=== PATIENT | female | born 1975 | race Caucasian/White ===

== ENCOUNTER 2018-04-01 07:11 | Day surgery (SDC) | payer BC ==
[~2018-04-01 07:11] MED LIST: Buffered Lidocaine 0.9% SYRIN* 5 ML/SYR SYRINGE INTRADERM ONE; Sodium Citrate/Citric Acid* 15 ML UDC PO ONE
[2018-04-01] MEDS ORDERED: Sodium Citrate/Citric Acid* 15 ML UDC ONE (07:14)
[2018-04-01] MEDS ORDERED: ceFAZolin 2 GM in NS PREMIX(*) 2 GM/100 ML BAG IVPB ONE (07:17)
[2018-04-01] MEDS ORDERED: Naloxone* 0.4 MG/ML 1 ML VIAL IV PRN (08:55)
[2018-04-01] MEDS ORDERED: Midazolam* 1 MG/ML 2 ML VIAL (2 MG) ONE ×2 (08:57→09:21)
[2018-04-01] MEDS ORDERED: Chloroprocaine 2%* 20 ML VIAL ONE (09:10)
[2018-04-01] MEDS ORDERED: diPHENhydraMINE IV* 50 MG/ML 1 ml VIAL (BENADRYL) ONE (09:10)
[2018-04-01] MEDS ORDERED: Propofol* 10 MG/ML 20 ML BTL IV PUSH ONE (09:29)
[2018-04-01] MEDS ORDERED: Lidocaine 2% PF * 5 ML VIAL ONE (09:30)
[2018-04-01] MEDS ORDERED: Ibuprofen TAB* 600 MG PO PRN (10:33)
[2018-04-01] MEDS ORDERED: oxyCODONE/Acetamin 5/325 MG* TAB PO PRN (10:34)
[2018-04-01 11:47] VITALS: BP 95/63
--- NOTE | 2018-04-01 21:37 | OP ---
CC: [facility]; Dr. Fields OPERATIVE REPORT: DATE OF OPERATION: 04/01/18 DATE OF : 75 SURGEON: Lyubov Fields MD ANESTHESIOLOGIST: Dr. Olmos. ANESTHESIA: Spinal. PRE-OP DIAGNOSIS: Menorrhagia, anemia hemoglobin 11. POST-OP DIAGNOSIS: Menorrhagia, anemia hemoglobin 11. OPERATIVE PROCEDURE: Dilation, hysteroscopy, curettage. ESTIMATED BLOOD LOSS: Less than 20 cc. SPECIMENS: Endometrial curettings. FLUID DEFICIT: 150 cc. DRAINS: None. FINDINGS: Small axial uterus sounds to 10.5 to 11. No adnexal masses palpated. Atrophic endometrium throughout. No endometrial polyps seen. No submucous fibroids. Both tubal ostia were visualized. Endocervix appears normal. No polyps seen in the endocervix. COMPLICATIONS: None. COUNTS: Sponge, lap, and needle count correct x2. CONDITION: The patient tolerated the procedure well and was brought to recovery room, awake, and in stable condition. DESCRIPTION OF PROCEDURE: The patient was brought to the operating room. When spinal anesthesia was found to be adequate, the patient was prepped and draped in the usual sterile fashion in the dorsal lithotomy position. A time-out was performed. Exam under anesthesia was performed. Weighted specul um was placed in the vagina and the anterior lip of the cervix was grasped with a single-tooth tenacu lum and the cervix was gently and easily dilated with graduated Stanford dilators. The MyoSure was intr oduced with the above findings noted. The MyoSure was removed. Curettage was performed. Endometria l curettings were sent to pathology. The single-tooth tenaculum was removed from the cervix. There was oozing from the right tenaculum site. Pressure was held with the polyp forceps for several minut es. When the pressure was removed, excellent hemostasis was noted. All instruments were removed from the vagina and the patient was brought to the recovery room, awake and in stable condition. [id number]/[facility] #: [id number]
== END 2018-04-01 11:54 | disposition home or self-care (01) ==
LOC: OR 07:11
PROVIDERS: ATTEND Obstetrics & Gynecology
DX: N92.0 Excessive and frequent menstruation with regular cycle (principal); D50.0 Iron deficiency anemia secondary to blood loss (chronic); N84.0 Polyp of corpus uteri; F41.8 Other specified anxiety disorders
CPT/HCPCS: 88305; A9270-GY; J0690; J1200; J2250; J2400; J2704